=== PATIENT | female | born 1970 | race Caucasian/White ===

== ENCOUNTER → 2020-01-12 | Outpatient (CLI) | payer OTHER ==
[~2020-01-12] MED LIST: ACETAMINOPHEN-1 EAC1 PO; AUGMENTIN 875875 MG PO; CARAFATE 1 GM TA1 G1 PO; FLEXERIL PO; NORCO 5-325 TA1 EACH PO; TESSALON PERLE100 MG PO
[2020-01-12 07:28] LABS: CALCIUM 8.9 mg/dL (8.5-10.1); CREATININE 0.9 mg/dL (0.6-1.3); POTASSIUM 3.7 mmol/L (3.5-5.1)
[2020-01-12 07:33] LABS: ALBUMIN 3.4 g/dL (3.4-5.0); TOTAL BILIRUBIN 0.3 mg/dL (<0.1-1.0); TOTAL PROTEIN 7.3 g/dL (6.4-8.2)
== END ==
LOC: M.MRI 06:53
PROVIDERS: Psychiatry & Neurology Neuromuscular Medicine
DX: R25.1 Tremor, unspecified (principal); Z87.898 Personal history of other specified conditions